=== PATIENT | male | born 1955 ===

== ENCOUNTER 2018-02-04 09:12 | Emergency (ER) | payer OTHER ==
[2018-02-04 09:17] VITALS: BMI 30.9
[2018-02-04 09:19] VITALS: TEMP 98.4
--- NOTE | 2018-02-04 09:35 | ED PDOC ---
Lower Extremity Pain/Injury Time Seen by Provider: 02/04/18 09:19 Chief Complaint (Nursing): Lower Extremity Problem/Injury History Per: Patient Onset/Duration Of Symptoms: Days (3) Current Symptoms Are (Timing): Still Present Severity: Moderate Pain Scale Rating Of: 2 Additional Complaint(s): Redness swelling and drainage right knee x 3 days. No trauma. denies fever or chills. Past Medical History Vital Signs: Last Vital Signs Temp 98.4 F 02/04/18 09:17 Pulse 94 H 02/04/18 09:17 Resp 20 02/04/18 09:17 BP 146/88 02/04/18 09:17 Pulse Ox 100 02/04/18 09:17 - Medical History PMH: No Chronic Diseases - Family History Family History: States: Unknown Family Hx - Home Medications Home Medications: Ambulatory Orders Medication Instructions Recorded Naproxen [Naprosyn] 500 mg PO Q12H #20 tab 02/04/18 Sulfamethoxazole/Trimethoprim 1 tab PO BID #20 tab 02/04/18 [Bactrim DS 800 mg-160 mg] - Allergies Allergies/Adverse Reactions: Allergies Allergy/AdvReac Type Severity Reaction Status Date / Time No Known Allergies Allergy Verified 02/04/18 09:30 Review of Systems ROS Statement: Except As Marked, All Systems Reviewed And Found Negative Constitutional: Negative for: Fever, Chills Musculoskeletal: Positive for: Other (Knee redness and swelling) Physical Exam - Reviewed Nursing Documentation Reviewed: Yes Vital Signs Reviewed: Yes - Physical Exam Appears: Positive for: Well, Non-toxic, No Acute Distress Head Exam: Positive for: ATRAUMATIC, NORMAL INSPECTION, NORMOCEPHALIC Skin: Positive for: Normal Color, Warm, DRY Eye Exam: Positive for: EOMI, Normal appearance, PERRL ENT: Positive for: Normal ENT Inspection Neck: Positive for: Normal, Painless ROM Cardiovascular/Chest: Positive for: Regular Rate, Rhythm Respiratory: Positive for: CNT, Normal Breath Sounds Gastrointestinal/Abdominal: Positive for: Normal Exam, Soft Back: Positive for: Normal Inspection Extremity: Positive for: Other (Right knee, prepatellar area erythemetous, warm swollen, central ulcer, scat serous drainage. No fluctuance) Neurologic/Psych: Positive for: Alert, Oriented - Laboratory Results Result Diagrams: 02/04/18 10:20 02/04/18 10:20 - ECG O2 Sat by Pulse Oximetry: 100 Disposition - Clinical Impression Clinical Impression: Cellulitis - Patient ED Disposition Is Patient to be Admitted: No Discussed With Dr.: Iftikhar Sparks Doctor Will See Patient In The: Office (Wednesday) Counseled Patient/Family Regarding: Studies Performed, Diagnosis, Need For Followup, Rx Given - Disposition Referrals: Iftikhar Sparks MD [Staff Provider] - Disposition: Routine/Home Disposition Time: 11:12 Condition: FAIR Prescriptions: Naproxen [Naprosyn] 500 mg PO Q12H #20 tab Sulfamethoxazole/Trimethoprim [Bactrim DS 800 mg-160 mg] 1 tab PO BID #20 tab Instructions: Cellulitis (Skin Infection), Adult (DC) Forms: [employer] ([place]ian)
[2018-02-04 10:03] LABS: VENOUS BLOOD GAS BASE EXCESS 4.1 mmol/L (0.0-2.0); VENOUS BLOOD GAS PCO2 52 mmHg (40-60); VENOUS BLOOD GAS PO2 23 mm/Hg (30-55); VENOUS BLOOD PH 7.38 (7.32-7.43)
[2018-02-04 10:37] LABS: BASO % 0.3 % (0.0-2.0); EOS % 0.2 % (0.0-4.0); HEMOGLOBIN 16.2 g/dL (12.0-18.0); LYMPH # 1.4 K/uL (1.0-4.3); LYMPH % 12.9 % (20.0-40.0); MEAN CELL VOLUME 91.8 fl (80.0-94.0); MEAN CORPUSCULAR HGB CONC 33.8 g/dL (33.0-37.0); MEAN PLATELET VOLUME 10.3 fl (7.2-11.7); MONO # 0.8 K/uL (0.0-0.8); MONO % 7.3 % (0.0-10.0); NEUT # 8.6 K/uL (1.8-7.0); NEUT % 79.3 % (50.0-75.0); NRBC % 0.1 % (0.0-0.0); RBC 5.21 Mil/uL (4.40-5.90); RED CELL DISTRIBUTION WIDTH 13.3 % (11.5-14.5); WHITE BLOOD COUNT 10.8 K/uL (4.8-10.8)
[2018-02-04 10:38] LABS: ALB/GLOB RATIO 0.9 (1.0-2.1); ALBUMIN 4.2 g/dL (3.5-5.0); ALT/SGPT 39 U/L (21-72); AST/SGOT 30 U/L (17-59); BLOOD UREA NITROGEN 14 mg/dl (9-20); CALCIUM 9.5 mg/dL (8.4-10.2); GFR AFRICAN-AMERICAN > 60; GFR NON-AFRICAN AMERICAN > 60
--- NOTE | 2018-02-04 11:31 | RAD ---
PROCEDURE: Right Knee Radiographs. HISTORY: infection COMPARISON: None. FINDINGS: BONES: No acute fracture or destructive bony lesion identified. JOINTS: No subluxation or dislocation apparent. Joint space narrowing seen in all 3 compartments but primarily at the patellofemoral and medial femorotibial compartment, compatible degenerative joint disease. JOINT EFFUSION: None. OTHER FINDINGS: None. IMPRESSION: No acute fracture or dislocation right knee. Mild to moderate degenerative joint disease.
[2018-02-04 12:56] VITALS: BP 133/90; PULSE 85; RESP 18; O2SAT 99
== END 2018-02-04 12:58 | disposition home or self-care (01) ==
LOC: H.ER 09:12
DX: L03.115 Cellulitis of right lower limb (principal)

== ENCOUNTER 2018-02-06 18:42 | Emergency (ER) | payer OTHER ==
[2018-02-06 18:42] VITALS: BMI 30.9
--- NOTE | 2018-02-06 20:04 | ED PDOC ---
HPI: General Adult Time Seen by Provider: 02/06/18 19:15 Chief Complaint (Nursing): Abnormal Skin Integrity Chief Complaint (Provider): Right Knee Infection History Per: Patient History/Exam Limitations: no limitations Onset/Duration Of Symptoms: Days (x5) Current Symptoms Are (Timing): Still Present Additional Complaint(s): 63 y/o male with no significant PMHx presenting due to right knee infection x5 days. Patient was seen here 2 days ago and diagnosed with Cellulitis of the right knee and was discharged with a Rx for Bactrim which he states he has been taking. He states 2 days ago he noticed a purulent discharged from the center of the erythematous area on his knee and noticed that the redness on his knee began to spread beyond the original demarcated area, prompting him to present for a reevaluation. He denies any knee pain, fever, difficulty bending the knee , or difficulty walking. He reports taking his Bactrim as prescribed. Past Medical History Reviewed: Historical Data, Nursing Documentation, Vital Signs Vital Signs: Last Vital Signs Temp 99.3 F 02/06/18 18:56 Pulse 80 02/06/18 18:56 Resp BP 146/74 02/06/18 18:56 Pulse Ox 98 02/06/18 20:12 - Medical History PMH: No Chronic Diseases - Surgical History Surgical History: No Surg Hx - Family History Family History: States: Unknown Family Hx - Home Medications Home Medications: Ambulatory Orders Medication Instructions Recorded Naproxen [Naprosyn] 500 mg PO Q12H #20 tab 02/04/18 Sulfamethoxazole/Trimethoprim 1 tab PO BID #20 tab 02/04/18 [Bactrim DS 800 mg-160 mg] Cephalexin [Keflex] 500 mg PO BID #20 capsule 02/06/18 - Allergies Allergies/Adverse Reactions: Allergies Allergy/AdvReac Type Severity Reaction Status Date / Time No Known Allergies Allergy Verified 02/04/18 09:30 Review of Systems ROS Statement: Except As Marked, All Systems Reviewed And Found Negative Constitutional: Negative for: Fever Musculoskeletal: Negative for: Leg Pain Skin: Positive for: Other (right knee redness with purulent discharge) Physical Exam - Reviewed Nursing Documentation Reviewed: Yes Vital Signs Reviewed: Yes - Physical Exam Appears: Positive for: Non-toxic, No Acute Distress Head Exam: Positive for: ATRAUMATIC, NORMAL INSPECTION, NORMOCEPHALIC Skin: Positive for: Normal Color, Warm, Dry Eye Exam: Positive for: EOMI, Normal appearance, PERRL Neck: Positive for: Normal, Painless ROM, Supple Cardiovascular/Chest: Positive for: Regular Rate, Rhythm. Negative for: Murmur Respiratory: Positive for: Normal Breath Sounds. Negative for: Respiratory Distress Gastrointestinal/Abdominal: Positive for: Normal Exam, Soft. Negative for: Tenderness Back: Positive for: Normal Inspection. Negative for: L CVA Tenderness, R CVA Tenderness, Vertebral Tenderness Extremity: Positive for: Normal ROM (right knee), Other (10 cm diameter redness of prepatellar area, purulent discharge from the center of the erythematous area , crusted skin in center of erythematous area). Negative for: Tenderness ( right knee) Neurologic/Psych: Positive for: Alert, Oriented. Negative for: Motor/Sensory Deficits - Laboratory Results Result Diagrams: 02/06/18 19:59 - ECG O2 Sat by Pulse Oximetry: 98 (RA) Pulse Ox Interpretation: Normal Medical Decision Making Medical Decision Making: Impression: Cellulitis of the skin of the prepatellar area of the right knee with a small draining abscess Plan: --CBC w/ differential --Vancomycin 1gm IVPB --Reevaluation Overall appears to be improvement of Cellulitis. Outpatient treatment of Bactrim appears to be successful. Disposition pending. Scribe Attestation: Documented by Weston Solitario, acting as a scribe for Marquez Trevizo MD. Provider Scribe Attestation: All medical record entries made by the Scribe were at my direction and personally dictated by me. I have reviewed the chart and agree that the record accurately reflects my personal performance of the history, physical exam, medical decision making, and the department course for this patient. I have also personally directed, reviewed, and agree with the discharge instructions and disposition. Disposition - Clinical Impression Clinical Impression: Cellulitis, Cellulitis of right knee - Patient ED Disposition Is Patient to be Admitted: No Doctor Will See Patient In The: Office Counseled Patient/Family Regarding: Studies Performed, Diagnosis, Need For Followup - Disposition Referrals: Iftikhar Sparks MD [Staff Provider] - Disposition: Routine/Home Disposition Time: 21:42 Condition: GOOD Additional Instructions: Take your medications as instructed. Return for worsening. Follow up with your PCP in 2 days. Prescriptions: Cephalexin [Keflex] 500 mg PO BID #20 capsule Instructions: Cellulitis (Skin Infection), Adult (DC)
[2018-02-06 20:13] LABS: BASO # 0.1 K/uL (0.0-0.2); BASO % 0.8 % (0.0-2.0); EOS # 0.1 K/uL (0.0-0.7); EOS % 1.3 % (0.0-4.0); HEMOGLOBIN 14.4 g/dL (12.0-18.0); LYMPH # 2.3 K/uL (1.0-4.3); LYMPH % 29.7 % (20.0-40.0); MEAN CELL VOLUME 91.6 fl (80.0-94.0); MEAN CORPUSCULAR HEMOGLOBIN 30.4 pg (27.0-31.0); MEAN CORPUSCULAR HGB CONC 33.2 g/dL (33.0-37.0); MEAN PLATELET VOLUME 10.1 fl (7.2-11.7); MONO # 0.6 K/uL (0.0-0.8); MONO % 7.9 % (0.0-10.0); NEUT # 4.6 K/uL (1.8-7.0); NEUT % 60.3 % (50.0-75.0); RBC 4.72 Mil/uL (4.40-5.90); RED CELL DISTRIBUTION WIDTH 12.9 % (11.5-14.5); WHITE BLOOD COUNT 7.6 K/uL (4.8-10.8)
[2018-02-06 21:56] VITALS: BP 143/77; PULSE 71; RESP 16; TEMP 98.6; O2SAT 100
== END 2018-02-06 22:30 | disposition home or self-care (01) ==
LOC: H.ER 18:42
DX: L03.115 Cellulitis of right lower limb (principal)

== ENCOUNTER 2018-08-03 08:28 | Emergency (ER) | payer OTHER ==
[2018-08-03 08:28] VITALS: BMI 30.9
[2018-08-03 08:35] VITALS: RESP 18
--- NOTE | 2018-08-03 09:10 | ED PDOC ---
HPI: Skin/Bite Injury Time Seen by Provider: 08/03/18 08:45 Chief Complaint (Provider): Rash History Per: Patient History/Exam Limitations: no limitations Onset/Duration Of Symptoms: Days (3 weeks) Additional Complaint(s): Pt. with a rash to the leg, arms for 3 weeks. Was getting worse, so pt. went to pcp. Given clinda for 1 week which he finished. Pt. has itching and rash still present. No pain. No weakness. No new soap, clothes, lotion, food, or anything new. Moving extremities with no issues. Past Medical History Reviewed: Nursing Documentation, Vital Signs Vital Signs: Last Vital Signs Temp 98.2 F 08/03/18 08:34 Pulse 76 08/03/18 08:34 Resp 18 08/03/18 08:34 BP 127/82 08/03/18 08:34 Pulse Ox 100 08/03/18 08:34 - Medical History PMH: Diabetes, HTN, Hypercholesterolemia - Surgical History Surgical History: No Surg Hx - Family History Family History: States: Unknown Family Hx - Living Arrangements Living Arrangements: With Family - Social History Current smoker - smoking cessation education provided: No Alcohol: None Drugs: Denies - Home Medications Home Medications: Ambulatory Orders Medication Instructions Recorded Naproxen [Naprosyn] 500 mg PO Q12H #20 tab 02/04/18 Sulfamethoxazole/Trimethoprim 1 tab PO BID #20 tab 02/04/18 [Bactrim DS 800 mg-160 mg] Cephalexin [Keflex] 500 mg PO BID #20 capsule 02/06/18 DiphenhydrAMINE [Benadryl] 25 mg PO TID PRN 5 Days cap 08/03/18 Famotidine [Pepcid] 20 mg PO DAILY PRN #6 tab 08/03/18 predniSONE [predniSONE Tab] 20 mg PO BID 5 Days tab 08/03/18 - Allergies Allergies/Adverse Reactions: Allergies Allergy/AdvReac Type Severity Reaction Status Date / Time No Known Allergies Allergy Verified 08/03/18 08:45 Review of Systems ROS Statement: Except As Marked, All Systems Reviewed And Found Negative Skin: Positive for: Rash Physical Exam - Reviewed Nursing Documentation Reviewed: Yes Vital Signs Reviewed: Yes - Physical Exam Appears: Positive for: Well, Non-toxic, No Acute Distress Head Exam: Positive for: ATRAUMATIC, NORMAL INSPECTION, NORMOCEPHALIC Skin: Positive for: Rash (b/l elbows and few patches on forearm, b/l lower legs large patches: raised mild scaled with trace blanching erythema. no induration, fluctuance, dc. in a dermatitis pattern.) Eye Exam: Positive for: EOMI, Normal appearance, PERRL ENT: Positive for: Normal ENT Inspection Neck: Positive for: Normal, Painless ROM Cardiovascular/Chest: Positive for: Regular Rate, Rhythm Respiratory: Positive for: CNT, Normal Breath Sounds Gastrointestinal/Abdominal: Positive for: Normal Exam, Soft. Negative for: Tenderness Back: Positive for: Normal Inspection. Negative for: L CVA Tenderness, R CVA Tenderness Extremity: Positive for: Normal ROM. Negative for: Tenderness, Pedal Edema, Calf Tenderness Neurologic/Psych: Positive for: Alert, Oriented - ECG O2 Sat by Pulse Oximetry: 100 - Progress ED Course And Treament: 913: Stable. AAOx3. Pain free. Tolerated PO. FU with pcp. Will tx for dermatitis. Disposition - Clinical Impression Clinical Impression: Dermatitis - Patient ED Disposition Is Patient to be Admitted: No Counseled Patient/Family Regarding: Diagnosis, Need For Followup, Rx Given - Disposition Referrals: Iftikhar Sparks MD [Family Provider] - 08/04/18 Disposition: Routine/Home Disposition Time: 09:14 Condition: STABLE Additional Instructions: Return if not better in 3 days. Prescriptions: DiphenhydrAMINE [Benadryl] 25 mg PO TID PRN 5 Days cap PRN Reason: Itching / Pruritus Famotidine [Pepcid] 20 mg PO DAILY PRN #6 tab PRN Reason: Pain predniSONE [predniSONE Tab] 20 mg PO BID 5 Days tab Instructions: Dermatitis
[2018-08-03 10:07] VITALS: BP 120/78; PULSE 78; TEMP 78; O2SAT 98
== END 2018-08-03 10:09 | disposition home or self-care (01) ==
LOC: H.ER 08:28
DX: L30.9 Dermatitis, unspecified (principal); E11.9 Type 2 diabetes mellitus without complications; E78.00 Pure hypercholesterolemia, unspecified; I10 Essential (primary) hypertension